=== PATIENT | female | born 1985 | race Caucasian/White ===

== ENCOUNTER 2017-04-25 09:16 | Emergency (ER) | payer OTHER ==
--- NOTE | 2017-04-25 09:40 | CPEKG ---
Heart Rate: 78 RR Interval: 769 P-R Interval: 132 QRSD Interval: 112 QT Interval: 400 QTC Interval: 456 QRS [place]: 101 T Wave [place]: -7 EKG Severity - ABNORMAL ECG - EKG Impression: ATRIAL-PACED RHYTHM EKG Impression: INCOMPLETE RIGHT BUNDLE BRANCH BLOCK Electronically Signed By: Casey Jesus 25-Apr-2017 13:02:51
--- NOTE | 2017-04-25 09:58 | EDPHY ---
H & P Time Seen by Provider: 04/25/17 09:45 HPI/ROS: CHIEF COMPLAINT: Cough, chest pain, difficulty breathing HISTORY OF PRESENT ILLNESS: 31-year-old female presents to the emergency department by private vehicle with ongoing cough, chest pain or difficulty breathing. The patient states in March she was sick the entire month, 4 weeks. She states that she was feeling a bit better for a week and then her symptoms returned approximately 1 week ago. She is now feeling lightheaded and weak. She has pain with breathing. She has pain in her chest on the left anterior aspect and has radiated down the left arm although the patient feels that this is likely muscular from frequent coughing. Patient also states that she has vomited multiple times after coughing. No fevers or chills. Her 4-year- old son was sick with similar symptoms since she states he is getting better. No recent travel. She did get a flu shot. Denies calf pain or swelling. Denies recent travel. REVIEW OF SYSTEMS: Constitutional: No fever, no chills. Eyes: No double or blurry vision. ENT: No sore throat. Respiratory: Cough, shortness of breath. Cardiac: chest pain. Gastrointestinal: Vomiting. No abdominal pain or diarrhea. Genitourinary: No dysuria. Musculoskeletal: No neck or back pain. Skin: No rashes. Neurological: No headache. 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 Adrenal insufficiency now off steroid, open heart surgery as an infant, asthma Social History: Smoking Status: Never smoked Physical Exam: General Appearance: Alert, no distress. 120/91, 92% on room air, afebrile. Eyes: Pupils equal and round. Extraocular motions are all intact. ENT: Mouth: Mucous membranes moist. Respiratory: Decreased breath sounds especially in the bases. No wheezing, rhonchi or rales. No retractions. No respiratory distress. Cardiovascular: Regular rate and rhythm. Pacemaker noted in the left anterior aspect of the chest. Gastrointestinal: Abdomen is soft and nontender, no masses, no rebound or guarding, bowel sounds normal. Neurological: Alert and oriented x 3, cranial nerves II through XII grossly intact Skin: Warm and dry, no rashes. Musculoskeletal: Nontender to palpate along the cervical, thoracic or lumbar spine. Neck is supple. Extremities: Full range of motion and no peripheral edema. Psychiatric: Patient is oriented X 3, there is no agitation. Constitutional: Initial Vital Signs Temperature (C) 36.8 C 04/25/17 09:21 Heart Rate 83 04/25/17 09:21 Respiratory Rate 16 04/25/17 09:21 Blood Pressure 120/91 H 04/25/17 09:21 O2 Sat (%) 92 04/25/17 09:21 O2 Delivery Mode Room Air Allergies/Adverse Reactions: gluten Allergy (Verified 04/25/17 09:18) Penicillins Allergy (Verified 04/25/17 09:18) Home Medications: Medication Instructions Recorded Albuterol [Proventil Inhaler HFA 1 - 2 puffs IH Q4H PRN 03/14/15 (*)] Cholecalciferol (Vitamin D3) 200 unit PO DAILY 05/03/15 [Delta D3] Multivitamins [Multivitamin (*)] 1 tab PO DAILY 05/03/15 Multivitamins [Multivitamin (*)] 1 each PO DAILY #0 tab 06/04/15 Beclomethasone Qvar 80 [Qvar 80 1 - 2 puffs IH BID #1 mdi 04/25/17 (*)] Fluticasone/Salmeter 250/50Mcg 1 puffs IH BID #1 disk 04/25/17 [Advair 250/50 (*)] Qvar 04/25/17 Medical Decision Making - Diagnostics Imaging Results: Imaging Impressions Chest X-Ray 04/25/17 09:55 Impression: Query mild airways disease. Imaging: I viewed and interpreted images myself ED Course/Re-evaluation: 31-year-old female presents to the emergency department with ongoing cough. Patient states that she was sick for the entire month of March and then improved after 1 week and now has been sick over last 1 week with ongoing productive cough and feeling short of breath. Her 4-year-old son has similar symptoms although she states that he is better. She has had no fevers or chills. She has been had also having intermittent pain in her left side of her chest. EKG was reviewed by Dr. Casey Jesus, secondary supervising physician, who did not directly evaluate the patient but agrees with treatment and plan. Laboratory studies reveal normal troponin. D-dimer is negative. I do not think this patient has pulmonary embolism. She does not have any pleuritic chest pain. She is not tachycardic. No recent travel. No calf pain or swelling. Chest x-ray was unremarkable. Laboratory studies were otherwise normal. The case was discussed with Dr. Casey Jesus, secondary supervising physician, who did not directly evaluate the patient but agrees with treatment plan. Differential Diagnosis: Chest pain including but not limited to myocardial ischemia, pulmonary embolus, chest wall pain, pleural inflammation and pulmonary infectious causes. The cough including but not limited to viral upper respiratory infection, influenza, bronchitis, pneumonia - Data Points Laboratory Results: Laboratory Results 04/25/17 09:40 04/25/17 09:40 04/25/17 04/25/17 04/25/17 09:45 09:40 09:40 WBC RBC Hgb Hct MCV MCH MCHC RDW Plt Count MPV Neut % (Auto) Lymph % (Auto) [place] % (Auto) Eos % (Auto) Baso % (Auto) Nucleat RBC Rel Count Absolute Neuts (auto) Absolute Lymphs (auto) Absolute Monos (auto) Absolute Eos (auto) Absolute Basos (auto) Absolute Nucleated RBC Immature Gran % Immature Gran # D-Dimer < 0.27 ug/mLFEU ug/mLFEU (0.00-0.50) Sodium Potassium Chloride Carbon Dioxide Anion Gap BUN Creatinine Estimated GFR Glucose Calcium Troponin I < 0.012 ng/mL ng/mL (0.000-0.034) Beta HCG, Qual Nasal Influenza A PCR NEGATIVE FOR FLU A (NEGATIVE) Nasal Influenza B PCR NEGATIVE FOR FLU B (NEGATIVE) 04/25/17 04/25/17 04/25/17 09:40 09:40 09:40 WBC 6.59 10^3/uL 10^3/uL (3.80-9.50) RBC 4.65 10^6/uL 10^6/uL (4.18-5.33) Hgb 14.1 g/dL g/dL (12.6-16.3) Hct 40.5 % % (38.0-47.0) MCV 87.1 fL fL (81.5-99.8) MCH 30.3 pg pg (27.9-34.1) MCHC 34.8 g/dL g/dL (32.4-36.7) RDW 12.9 % % (11.5-15.2) Plt Count 199 10^3/uL 10^3/uL (150-400) MPV 9.9 fL fL (8.7-11.7) Neut % (Auto) 59.1 % % (39.3-74.2) Lymph % (Auto) 22.2 % % (15.0-45.0) [place] % (Auto) 12.7 % % (4.5-13.0) Eos % (Auto) 4.7 % % (0.6-7.6) Baso % (Auto) 1.1 % % (0.3-1.7) Nucleat RBC Rel Count 0.0 % % (0.0-0.2) Absolute Neuts (auto) 3.90 10^3/uL 10^3/uL (1.70-6.50) Absolute Lymphs (auto) 1.46 10^3/uL 10^3/uL (1.00-3.00) Absolute Monos (auto) 0.84 10^3/uL H 10^3/uL (0.30-0.80) Absolute Eos (auto) 0.31 10^3/uL 10^3/uL (0.03-0.40) Absolute Basos (auto) 0.07 10^3/uL 10^3/uL (0.02-0.10) Absolute Nucleated RBC 0.00 10^3/uL 10^3/uL (0-0.01) Immature Gran % 0.2 % % (0.0-1.1) Immature Gran # 0.01 10^3/uL 10^3/uL (0.00-0.10) D-Dimer Sodium 140 mEq/L mEq/L (134-144) Potassium 4.3 mEq/L mEq/L (3.5-5.2) Chloride 103 mEq/L mEq/L (97-110) Carbon Dioxide 21 mEq/l L mEq/l (22-31) Anion Gap 16 mEq/L mEq/L (8-16) BUN 6 mg/dL L mg/dL (7-23) Creatinine 0.8 mg/dL mg/dL (0.6-1.0) Estimated GFR > 60 Glucose 91 mg/dL mg/dL (70-100) Calcium 9.8 mg/dL mg/dL (8.5-10.4) Troponin I Beta HCG, Qual NEGATIVE Nasal Influenza A PCR Nasal Influenza B PCR Departure - Departure Disposition: Home, Routine, Self-Care Clinical Impression: Upper respiratory infection Qualifiers: URI type: unspecified URI Qualified Code(s): J06.9 - Acute upper respiratory infection, unspecified Condition: Good Instructions: Upper Respiratory Infection (ED) Additional Instructions: Albuterol inhaler 2 puffs every 4 hours for one week. Q-Nilda or Advair as directed per your request. Return to the emergency department if you develop difficulty breathing, difficulty swallowing, fever, or if you feel worse in any way. Referrals: Katie Ace MD [Primary Care Provider] - As per Instructions Prescriptions: Beclomethasone Qvar 80 [Qvar 80 (*)] 1 - 2 puffs IH BID #1 mdi Fluticasone/Salmeter 250/50Mcg [Advair 250/50 (*)] 1 puffs IH BID #1 disk
[2017-04-25 10:05] LABS: % IMMATURE GRANULYOCYTES 0.2 % (0.0-1.1); ABSOLUTE IMMATURE GRANULOCYTES 0.01 10^3/uL (0.00-0.10); ADD DIFF? NO; ADD MORPH? NO; ADD SCAN? NO; ATYPICAL LYMPHOCYTE FLAG 30 (0-99); FRAGMENT RBC FLAG 0 (0-99); HEMATOCRIT 40.5 % (38.0-47.0); HEMOGLOBIN 14.1 g/dL (12.6-16.3); LEFT SHIFT FLG 0 (0-99); LIPEMIA HEMOLYSIS FLAG 90 (0-99); MEAN CELL HEMOGLOBIN 30.3 pg (27.9-34.1); MEAN CELL HEMOGLOBIN CONCENTR. 34.8 g/dL (32.4-36.7); MEAN CELL VOLUME 87.1 fL (81.5-99.8); MEAN PLATELET VOLUME 9.9 fL (8.7-11.7); PLATELET CLUMPS FLAG 10 (0-99); PLATELET COUNT 199 10^3/uL (150-400); RED BLOOD CELL COUNT 4.65 10^6/uL (4.18-5.33); RED CELL DISTRIBUTION WIDTH 12.9 % (11.5-15.2)
[2017-04-25 10:23] LABS: ANION GAP 16 mEq/L (8-16); CALCIUM 9.8 mg/dL (8.5-10.4); CARBON DIOXIDE 21 mEq/l (22-31); CHLORIDE 103 mEq/L (97-110); CREATININE 0.8 mg/dL (0.6-1.0); GLOMERULAR FILTRATION RATE > 60; GLUCOSE 91 mg/dL (70-100); POTASSIUM 4.3 mEq/L (3.5-5.2); SODIUM 140 mEq/L (134-144)
[2017-04-25 12:27] VITALS: RESP 18
[2017-04-25 13:06] VITALS: BP 107/77; PULSE 78; TEMP 98.1; O2SAT 95
== END 2017-04-25 13:06 | disposition home or self-care (01) ==
DX: J06.9 Acute upper respiratory infection, unspecified (principal)